=== PATIENT | male | born 1980 | race Caucasian/White ===

== ENCOUNTER 2016-12-12 17:43 | Emergency (ER) | payer SELFPAY ==
[~2016-12-12] VITALS: Ht 167.6 cm; Wt 68.2 kg
[~2016-12-12 17:43] MED LIST: AMOXICILLIN500 MG OR; AMOXICILLIN500 MG PO; ANAPROX275 MG OR; CIPRO500 MG OR; CLINDAMYCIN300 M1 PO; DENIES ANY HOME MEDS; DENIES CURRENT MEDS; DOXYCYC MONO100 M1 OR; FLEXERIL10 MG PO; KEFLEX500 MG PO; LEVACET OR; LEVOTHYROXIN50 MC1 PO; LEVOTHYROXIN75 MC1 PO; LORTAB 1010 MG PO; LORTAB 5 OR; LORTAB 5/3255 MG PO; LORTAB 7.57.5 MG PO; MOTRIN800 MG OR; MOTRIN800 MG PO; MUSCLE RELAXER; NAPROSYN500 MG OR; NAPROSYN500 MG PO; NAPROXEN500 MG OR; NAPROXEN500 MG PO; NO HOME MEDS; NO MEDS; NORCO1 TA1 PO; NSAID; PENICILLN VK500 MG PO; PERCOCET 5/325M1 TAB OR; PERCOCET 5/325M1 TAB PO; PREDNISONE20 MG PO; TESSALON PER100 MG PO; ULTRAM50 MG OR; VICOPROFEN OR; ZITHROMAX500 MG PO
[2016-12-12] MEDS ORDERED: PERCOCET 5/325M1 TAB PO (20:45)
[2016-12-12 21:56] VITALS: BP 140/86
== END 2016-12-12 21:55 | disposition home or self-care (01) | DRG 605 ==
LOC: ED 17:43
DX: S00.83XA Contusion of other part of head, initial encounter (principal); Y04.8XXA Assault by other bodily force, initial encounter

== ENCOUNTER 2017-12-23 17:43 | Emergency (ER) | payer BC ==
[~2017-12-23] VITALS: Ht 167.6 cm; Wt 70.9 kg
[2017-12-23] MEDS ORDERED: BENADRYL 50MG C50 MG PO (18:24)
[2017-12-23 18:36] VITALS: BP 136/82
== END 2017-12-23 18:36 | disposition home or self-care (01) | DRG 607 ==
LOC: ED 17:43
DX: R21 Rash and other nonspecific skin eruption (principal); L29.9 Pruritus, unspecified

== ENCOUNTER 2019-07-06 15:07 | Emergency (ER) | payer SELFPAY ==
[~2019-07-06] VITALS: Ht 167.6 cm; Wt 70.0 kg
[~2019-07-06 15:07] MED LIST changes: +BENADRYL 50MG C50 MG PO
[2019-07-06 15:30] VITALS: BP 116/71
== END 2019-07-06 15:30 | disposition home or self-care (01) | DRG 93 ==
LOC: ED 15:07
DX: G89.29 Other chronic pain (principal); M54.5 Low back pain

== ENCOUNTER 2019-10-18 | Emergency (ER) | payer OTHER ==
[2019-10-18] MEDS ORDERED: GABAPENTIN600 MG PO (02:14)
[2019-10-18] MEDS ORDERED: FLEXERIL PO (02:15)
[2019-10-18 02:41] LABS: HEMATOCRIT 42.7 % (39.0-50.0); IMMATURE GRANULOCYTES 0.2 % (0.0-5.0); MEAN CORPUSCULAR HGB 32.3 pG CALC (26.0-32.0); MEAN CORPUSCULAR HGB CONC 35.1 g/L CALC (32.0-36.0); NEUT# 8.17 thou/uL (1.82-7.42); RED BLOOD COUNT 4.64 mill/uL (4.70-6.10); RED CELL DISTRI WIDTH 12.1 % (11.5-15.5)
[2019-10-18 02:53] LABS: ALBUMIN 4.5 g/dL (3.2-5.0); ALKALINE PHOSPHATASE 53 u/l (38-126); AMYLASE 35 u/l (30-110); ANION GAP 16 (6-22 (CALC)); BILIRUBIN, TOTAL 0.6 mg/dL (0.0-1.4); BUN 15 mg/dL (9-20); BUN/CREATININE RATIO 17 (12-20 (CALC)); CARBON DIOXIDE 21 mmol/l (22-30); CHLORIDE 105 mmol/l (95-108); CREATININE 0.9 mg/dL (0.7-1.3); GFR > 60 ML/MIN (>=60 (CALC)); GFR FOR AFR.AMER. > 60 ML/MIN (>=60 (CALC)); LIPASE 59 u/l (23-300); POTASSIUM 4.2 mmol/l (3.5-5.1); SGOT/AST 24 u/l (17-59); SODIUM 137 mmol/l (137-146); TOTAL PROTEIN 7.4 g/dL (6.3-8.2)
[2019-10-18] MEDS ORDERED: PHENERGAN25 MG/TAB PO (03:26)
== END 2019-10-18 03:58 | disposition home or self-care (01) ==
PROVIDERS: Family Medicine
DX: K52.9 Noninfective gastroenteritis and colitis, unspecified (principal); F17.210 Nicotine dependence, cigarettes, uncomplicated

== ENCOUNTER 2020-06-11 19:49 | Emergency (ER) | payer OTHER ==
[~2020-06-11 19:49] MED LIST changes: +FLEXERIL PO; +GABAPENTIN600 MG PO; +PHENERGAN25 MG/TAB PO
== END 2020-06-11 19:56 | disposition left against medical advice (07) | DRG 951 ==
LOC: ED 19:49 → LWOBS 19:56
DX: Z53.21 Procedure and treatment not carried out due to patient leaving prior to being seen by health care provider (principal)

== ENCOUNTER 2021-01-13 04:33 | Emergency (ER) | payer OTHER ==
[2021-01-13 06:16] LABS: HEMATOCRIT 39.4 % (39.0-50.0); HEMOGLOBIN 13.8 g/dl (14.0-18.0); IMMATURE GRANULOCYTES 0.4 % (0.0-5.0); MEAN CELL VOLUME 90.6 fL CALC (80.0-100.0); MEAN CORPUSCULAR HGB 31.7 pG CALC (26.0-32.0); NEUT# 5.59 thou/uL (1.82-7.42); RED BLOOD COUNT 4.35 mill/uL (4.70-6.10); RED CELL DISTRI WIDTH 12.8 % (11.5-15.5)
[2021-01-13 06:31] LABS: ALBUMIN 4.3 g/dL (3.2-5.0); ALKALINE PHOSPHATASE 42 u/l (38-126); BILIRUBIN, TOTAL 0.7 mg/dL (0.0-1.4); BUN 13 mg/dL (9-20); BUN/CREATININE RATIO 16 (12-20 (CALC)); CHLORIDE 106 mmol/l (95-108); CREATININE 0.8 mg/dL (0.7-1.3); GFR > 60 ML/MIN (>=60 (CALC)); GFR FOR AFR.AMER. > 60 ML/MIN (>=60 (CALC)); POTASSIUM 3.4 mmol/l (3.5-5.1); SGOT/AST 31 u/l (17-59); SODIUM 138 mmol/l (137-146); TOTAL PROTEIN 6.9 g/dL (6.3-8.2)
[2021-01-13 06:37] LABS: ANION GAP 9 (6-22 (CALC)); CARBON DIOXIDE 26 mmol/l (22-30)
[2021-01-13 07:35] LABS: URINE BILIRUBIN - DIPSTICK NEGATIVE (NEGATIVE); URINE BLOOD DIPSTICK NEGATIVE (NEGATIVE); URINE COLOR YELLOW; URINE GLUCOSE - DIPSTICK NEGATIVE (NEGATIVE); URINE KETONE 15 mg/dL (NEGATIVE); URINE LEUK ESTERASE NEGATIVE (NEGATIVE); URINE NITRITE - DIPSTICK NEGATIVE (Negative); URINE PROTEIN - DIPSTICK NEGATIVE (NEG-TRACE); URINE UROBILINOGEN - DIPSTICK 0.2 E.U./dL (0.2)
[2021-01-13] MEDS ORDERED: CLONIDINE0.1 MG PO (07:44)
[2021-01-13 08:26] VITALS: BP 125/84
== END 2021-01-13 08:39 | disposition home or self-care (01) ==
LOC: ED 04:33
PROVIDERS: Emergency Medicine
DX: F11.23 Opioid dependence with withdrawal (principal); F17.210 Nicotine dependence, cigarettes, uncomplicated
CPT/HCPCS: J2060

== ENCOUNTER 2022-02-14 07:39 | Emergency (ER) | payer OTHER ==
[~2022-02-14] VITALS: Ht 165.1 cm; Wt 72.0 kg
[~2022-02-14 07:39] MED LIST changes: +CLONIDINE0.1 MG PO
[2022-02-14] MEDS ORDERED: METHADONE40 MG PO (07:46)
[2022-02-14] MEDS ORDERED: THYROID PO (07:48)
[2022-02-14 07:53] VITALS: BP 152/95
[2022-02-14 08:03] VITALS: BP 140/111
[2022-02-14 08:32] VITALS: BP 159/70
[2022-02-14 09:19] VITALS: BP 159/70
[2022-02-14] MEDS ORDERED: BACITRACIN3.5 GM TOP (09:21)
== END 2022-02-14 09:45 | disposition home or self-care (01) | DRG 605 ==
LOC: ED 07:39
DX: S50.811A Abrasion of right forearm, initial encounter (principal); S60.221A Contusion of right hand, initial encounter; F17.200 Nicotine dependence, unspecified, uncomplicated; V47.5XXA Car driver injured in collision with fixed or stationary object in traffic accident, initial encounter; W22.11XA Striking against or struck by driver side automobile airbag, initial encounter